=== PATIENT | female | born 1930 | race Caucasian/White ===

== ENCOUNTER 2016-12-04 11:47 | Observation (INO) ==
[2016-12-04] MEDS ORDERED: methylPREDNISolone 125 MG/2 ML VIAL IVP ONE (11:53)
[2016-12-04] MEDS ORDERED: Albuterol 2.5 MG/3 ML NEBULIZER IH ONE (11:53)
[2016-12-04] MEDS ORDERED: Levofloxacin 500 MG/100 ML 500 MG/100 ML BAG IVPB ONE (11:56)
[2016-12-04] MEDS ORDERED: 0.9 % Sodium Chloride 1,000 ML IVC ONE (11:56)
--- NOTE | 2016-12-04 12:01 | Emergency Department Note ---
Disposition Clinical Impression: COPD exacerbation Pneumonia Qualifiers: Pneumonia type: due to unspecified organism Laterality: right Lung location: upper lobe of lung Qualified Code(s): J18.1 - Lobar pneumonia, unspecified organism Disposition: Admitted As Inpatient Condition: Fair Referrals: NO,PCP [Primary Care Provider] - Forms: ED Satisfaction Letter Time of Disposition: 13:00 SOB HPI - General Chief Complaint: ED Shortness of Breath/Dyspnea Stated Complaint: breathing trouble Time Seen by Provider: 12/04/16 11:53 Source: patient, family Mode of arrival: EMS Limitations: no limitations, age Nursing Notes Reviewed: Yes Vital Signs Reviewed: Yes - History of Present Illness Family states patient has not been ill but woke up this morning with shortness of breath. She was actually seen by her primary physician on Monday. Told to stop the Lasix and lidocaine patch was given for chronic back pain. They are concerned about her low total weight. They also referred her to pain management. Family member who takes care of her indicates that the patient does have a history of bronchospasm and lung disease but had been prescribed a nebulizer a year ago and never uses it so she sent back. She also never uses her puffer area this morning however the family member gave her an albuterol nebulizer of another family members treatment about an hour before arrival. Patient denies any chest pain, palpitations, not aware for fever, no Reiger's, no chest pain no nausea no vomiting she does have a decreased appetite. Denies dysuria Pt Subjective Complaint: shortness of breath, cough Onset (ago): hour(s) Severity: severe Consistency/Duration: constant Improves with: bronchodilators Worsens with: lying flat, coughing Known history of: COPD Treatment prior to arrival: oxygen, bronchodilator Cough present: Yes Cough Description: Voluntary, Weak Cough Frequency: Intermittent Sputum production: No Sputum Amount: None - Related Data Home oxygen amount: none Home Medications Medication Instructions Recorded Confirmed Aspirin 81 mg PO DAILY 05/11/15 01/06/16 Gabapentin [Neurontin] 100 mg PO TID 05/11/15 01/06/16 Furosemide [Lasix] 10 mg PO DAILY 01/05/16 01/05/16 Omeprazole [PriLOSEC] 20 mg PO DAILY 01/05/16 01/05/16 hydroCHLOROthiazide 12.5 mg PO DAILY 01/11/16 01/11/16 [Hydrochlorothiazide] Azithromycin [Zithromax] 250 mg PO DAILY 01/14/16 01/14/16 Allergies Allergy/AdvReac Type Severity Reaction Status Date / Time cephalexin [From Keflex] Allergy Flushing Verified 01/05/16 21:08 moxifloxacin Allergy Flushing Verified 01/05/16 21:08 All systems ED: reviewed and negative except as stated. Cardiovascular: Denies: chest pain, palpitations, edema, syncope, paroxysmal nocturnal dyspnea Respiratory: Reports: dyspnea, wheezes. Denies: cough, hemoptysis, sputum production Gastrointestinal: Denies: nausea, vomiting Past Medical History - Past Medical History Medical history: Reports: COPD, hypertension, other Surgical history: Reports: no surgical history Psychiatric history: Reports: no psych history POUNDMASTER history: Reports: no POUNDMASTER history - Social History Smoking Status: Never smoker Smokeless Tobacco Status: No Alcohol use: Reports: none Drug use: Reports: none Physical Exam Constitutional: Patient is oriented to person, place, and time. Skin color is pink. Appears well hydrated, body habitus elderly, cachectic, frail . Non toxic appearing. Head: Normocephalic and atraumatic. External ear exam normal Nose: Nose normal. Mouth/Throat: Uvula is midline, oropharynx is clear and moist and mucous membranes are normal. Eyes: Conjunctivae nl, extraocular motions and lids are normal. Pupils are equal , round, and reactive to light. Neck: Normal range of motion and phonation normal. Neck supple. Cardiovascular: Rapid rate, regular rhythm, normal heart sounds. Pulmonary/Chest: Patient presents in Respiratory distress. Increased respiratory effort, intercostal muscle use, diminished breath sounds, end expiratory wheezing, no rhonchi or rales, prolonged expiratory phase Abdominal: Soft. Normal appearance and bowel sounds are normal. no tenderness, no masses, no guarding, no rebound Musculoskeletal: Good distal pulses. Soft compartments. Brisk cap refill. Extremities: Normal range of motion.Intact peripheral pulses. No Edema. Extremity skin color nl, no calf tenderness or palpable cords. Neurological: Patient is alert and oriented without evidence of obvious motor deficits Skin: Skin is warm, dry and intact. color is normal, cap refill is quick Psychiatric: Patient has normal mood and affect. Patient speech is normal and behavior is normal. Thought content normal. - General Limitations: no limitations General appearance: alert, in distress Course - Reevaluation(s) Reevaluation #1: Patient has maintained normal vitals and is improved slightly after breathing treatment. She has pneumonia and will require hospitalization. Family would like her admitted here. Plan for admit Time: 12:58 Vital Signs Temperature 100.7 F H 12/04/16 11:50 Pulse Rate 111 12/04/16 11:50 Respiratory Rate 28 12/04/16 11:50 Blood Pressure 172/93 12/04/16 11:50 O2 Sat by Pulse Oximetry 95 12/04/16 11:50 Temperature 100.7 F H 12/04/16 11:50 Pulse Rate 102 12/04/16 13:01 Respiratory Rate 20 12/04/16 13:01 Blood Pressure 142/76 12/04/16 13:01 O2 Sat by Pulse Oximetry 99 12/04/16 13:01 Oxygen Delivery Oxygen Delivery Nasal Cannula Shortness of Breath/Dyspnea - MDM Narrative Medical decision making narrative: pt likely has pneumonia w/ hx COPD and SOB w fever. 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 Also cannot use Levaquin which would initially be first-line therapy. For this reason I have chosen azithromycin for community-acquired pneumonia in patient with comorbidities and also ertapenem - Medical Records Medical records reviewed: Yes I reviewed the patient's medical records. - Lab Data Lab results reviewed: Yes I reviewed the patient's lab results. Result diagrams: 12/04/16 12:10 12/04/16 12:10 Lab Results 12/04/16 12/04/16 12/04/16 Range/Units 12:10 12:10 12:10 WBC 7.0 (4.3-11.1) K/mcL RBC 3.63 L (3.82-4.97) M/mcL Hgb 11.4 L (11.5-15.4) g/dL Hct 34.7 L (35.3-44.9) % MCV 95.6 (83.0-100.0) fL MCH 31.4 (28.0-33.3) pg MCHC 32.9 (31.6-35.5) g/dL RDW 14.5 (11.5-14.5) % Plt Count 256 (140-400) K/mcL MPV 10.6 (9.4-12.4) fL Immature Gran % 0.3 (0-4) % Seg Neutrophils % 72.0 % Lymphocytes % 13.6 % Monocytes % 8.3 % Eosinophils % 5.4 % Basophils % 0.4 % Neutrophils # 5.1 (1.6-8.9) K/mcL Lymphocytes # 1.0 (0.6-4.6) K/mcL Monocytes # 0.6 (0.0-1.3) K/mcL Eosinophils # 0.4 (0.0-0.6) K/mcL Basophils # 0.0 (0.0-0.2) K/mcL PT (9.4-12.1) Seconds INR APTT (26.0-36.0) Seconds VBG pH (7.32-7.42) pH Units VBG pCO2 (41-51) mmHg VBG pO2 (25-40) mmHg VBG HCO3 (21-27) mEq/L VBG Lactic Acid (0.5-2.2) mmol/L Sodium 143 (136-145) mEq/L Potassium 4.8 H (3.5-4.5) mEq/L Chloride 107 (98-109) mEq/L Carbon Dioxide 23 (19-29) mEq/L BUN 28 H (7-20) mg/dL Creatinine 1.96 H (0.57-1.11) mg/dL Est GFR ( Amer) 29 L (> 60) Est GFR (Non-Af Amer) 24 L (> 60) BUN/Creatinine Ratio 14 (6-26) Glucose 99 (70-99) mg/dL Calculated Osmolality 302 H (280-300) Calcium 10.0 (8.6-10.8) mg/dL Total Bilirubin 0.5 (0.2-1.2) mg/dL Direct Bilirubin 0.3 (0.0-0.5) mg/dL Indirect Bilirubin 0.2 (0.0-1.2) mg/dL AST 12 (5-34) Units/L ALT 6 (0-55) Units/L Alkaline Phosphatase 59 (38-126) Units/L Troponin I 0.04 H* (0-0.03) ng/mL B-Natriuretic Peptide (0-100) pg/mL Serum Total Protein 7.2 (6.0-8.3) g/dL Albumin 3.0 L (3.5-5.0) g/dL Globulin 4.2 H (2.4-3.5) g/dL Albumin/Globulin Ratio 0.7 L (1.1-2.2) Urine Color (Yellow) Urine Clarity (Clear) Urine pH (5.0-8.0) pH Units Ur Specific [place] (1.010-1.025) Urine Protein (Neg-Trace) mg/dL Urine Glucose (UA) (Normal) mg/dL Urine Ketones (Negative) mg/dL Urine Blood (Negative) Urine Nitrite (Negative) Urine Bilirubin (Negative) Urine Urobilinogen (Normal) mg/dL Ur Leukocyte Esterase (Negative) Urine Microscopic WBC (0-3) per hpf Ur Squamous Epith Cells (None-Few) per lpf Ur Culture Indicated? (NO) 12/04/16 12/04/16 12/04/16 Range/Units 12:10 12:10 12:10 WBC (4.3-11.1) K/mcL RBC (3.82-4.97) M/mcL Hgb (11.5-15.4) g/dL Hct (35.3-44.9) % MCV (83.0-100.0) fL MCH (28.0-33.3) pg MCHC (31.6-35.5) g/dL RDW (11.5-14.5) % Plt Count (140-400) K/mcL MPV (9.4-12.4) fL Immature Gran % (0-4) % Seg Neutrophils % % Lymphocytes % % Monocytes % % Eosinophils % % Basophils % % Neutrophils # (1.6-8.9) K/mcL Lymphocytes # (0.6-4.6) K/mcL Monocytes # (0.0-1.3) K/mcL Eosinophils # (0.0-0.6) K/mcL Basophils # (0.0-0.2) K/mcL PT 11.0 (9.4-12.1) Seconds INR 1.0 APTT 28.9 (26.0-36.0) Seconds VBG pH 7.34 (7.32-7.42) pH Units VBG pCO2 50.2 (41-51) mmHg VBG pO2 42.2 H (25-40) mmHg VBG HCO3 26.8 (21-27) mEq/L VBG Lactic Acid 1.4 (0.5-2.2) mmol/L Sodium (136-145) mEq/L Potassium (3.5-4.5) mEq/L Chloride (98-109) mEq/L Carbon Dioxide (19-29) mEq/L BUN (7-20) mg/dL Creatinine (0.57-1.11) mg/dL Est GFR ( Amer) (> 60) Est GFR (Non-Af Amer) (> 60) BUN/Creatinine Ratio (6-26) Glucose (70-99) mg/dL Calculated Osmolality (280-300) Calcium (8.6-10.8) mg/dL Total Bilirubin (0.2-1.2) mg/dL Direct Bilirubin (0.0-0.5) mg/dL Indirect Bilirubin (0.0-1.2) mg/dL AST (5-34) Units/L ALT (0-55) Units/L Alkaline Phosphatase (38-126) Units/L Troponin I (0-0.03) ng/mL B-Natriuretic Peptide 159 H (0-100) pg/mL Serum Total Protein (6.0-8.3) g/dL Albumin (3.5-5.0) g/dL Globulin (2.4-3.5) g/dL Albumin/Globulin Ratio (1.1-2.2) Urine Color (Yellow) Urine Clarity (Clear) Urine pH (5.0-8.0) pH Units Ur Specific [place] (1.010-1.025) Urine Protein (Neg-Trace) mg/dL Urine Glucose (UA) (Normal) mg/dL Urine Ketones (Negative) mg/dL Urine Blood (Negative) Urine Nitrite (Negative) Urine Bilirubin (Negative) Urine Urobilinogen (Normal) mg/dL Ur Leukocyte Esterase (Negative) Urine Microscopic WBC (0-3) per hpf Ur Squamous Epith Cells (None-Few) per lpf Ur Culture Indicated? (NO) 12/04/16 Range/Units 12:40 WBC (4.3-11.1) K/mcL RBC (3.82-4.97) M/mcL Hgb (11.5-15.4) g/dL Hct (35.3-44.9) % MCV (83.0-100.0) fL MCH (28.0-33.3) pg MCHC (31.6-35.5) g/dL RDW (11.5-14.5) % Plt Count (140-400) K/mcL MPV (9.4-12.4) fL Immature Gran % (0-4) % Seg Neutrophils % % Lymphocytes % % Monocytes % % Eosinophils % % Basophils % % Neutrophils # (1.6-8.9) K/mcL Lymphocytes # (0.6-4.6) K/mcL Monocytes # (0.0-1.3) K/mcL Eosinophils # (0.0-0.6) K/mcL Basophils # (0.0-0.2) K/mcL PT (9.4-12.1) Seconds INR APTT (26.0-36.0) Seconds VBG pH (7.32-7.42) pH Units VBG pCO2 (41-51) mmHg VBG pO2 (25-40) mmHg VBG HCO3 (21-27) mEq/L VBG Lactic Acid (0.5-2.2) mmol/L Sodium (136-145) mEq/L Potassium (3.5-4.5) mEq/L Chloride (98-109) mEq/L Carbon Dioxide (19-29) mEq/L BUN (7-20) mg/dL Creatinine (0.57-1.11) mg/dL Est GFR ( Amer) (> 60) Est GFR (Non-Af Amer) (> 60) BUN/Creatinine Ratio (6-26) Glucose (70-99) mg/dL Calculated Osmolality (280-300) Calcium (8.6-10.8) mg/dL Total Bilirubin (0.2-1.2) mg/dL Direct Bilirubin (0.0-0.5) mg/dL Indirect Bilirubin (0.0-1.2) mg/dL AST (5-34) Units/L ALT (0-55) Units/L Alkaline Phosphatase (38-126) Units/L Troponin I (0-0.03) ng/mL B-Natriuretic Peptide (0-100) pg/mL Serum Total Protein (6.0-8.3) g/dL Albumin (3.5-5.0) g/dL Globulin (2.4-3.5) g/dL Albumin/Globulin Ratio (1.1-2.2) Urine Color Yellow (Yellow) Urine Clarity Clear (Clear) Urine pH 6.0 (5.0-8.0) pH Units Ur Specific [place] 1.020 (1.010-1.025) Urine Protein 30 H (Neg-Trace) mg/dL Urine Glucose (UA) Normal (Normal) mg/dL Urine Ketones Negative (Negative) mg/dL Urine Blood Negative (Negative) Urine Nitrite Negative (Negative) Urine Bilirubin Negative (Negative) Urine Urobilinogen Normal (Normal) mg/dL Ur Leukocyte Esterase Negative (Negative) Urine Microscopic WBC 0-3 (0-3) per hpf Ur Squamous Epith Cells Few (None-Few) per lpf Ur Culture Indicated? NO (NO) - Radiology Data Radiology results reviewed: Yes I reviewed the patient's radiology results. Right upper lobar pneumonia - EKG Data EKG attestation: Yes I reviewed and interpreted this EKG. EKG shows normal: Reports: sinus rhythm Rate: Reports: tachycardia [place]/QRS: Reports: normal Voltage: Reports: c/w LVH Interpretation: Reports: nonspecific ST-T wave changes
[2016-12-04] MEDS ORDERED: Azithromycin 500 MG in D5% in Water 250 ML IVPB ONE (12:02)
[2016-12-04 12:22] LABS: Basophils % 0.4 %; Eosinophils # 0.4 K/mcL (0.0-0.6); Eosinophils % 5.4 %; Hematocrit 34.7 % (35.3-44.9); Hemoglobin 11.4 g/dL (11.5-15.4); Immature Granulocytes % 0.3 % (0-4); Lymphocytes % 13.6 %; Mean Corpuscular HGB Conc 32.9 g/dL (31.6-35.5); Mean Corpuscular Hemoglobin 31.4 pg (28.0-33.3); Mean Corpuscular Volume 95.6 fL (83.0-100.0); Mean Platelet Volume 10.6 fL (9.4-12.4); Monocytes # 0.6 K/mcL (0.0-1.3); Monocytes % 8.3 %; Neutrophils # 5.1 K/mcL (1.6-8.9); Platelet Count 256 K/mcL (140-400); Red Blood Count 3.63 M/mcL (3.82-4.97); Red Cell Distribution Width 14.5 % (11.5-14.5)
[2016-12-04 12:32] LABS: Activated Partial Thrombo Time 28.9 Seconds (26.0-36.0)
[2016-12-04 12:33] LABS: VBG PCO2 50.2 mmHg (41-51); VBG PH 7.34 pH Units (7.32-7.42)
[2016-12-04 12:34] LABS: VBG HCO3 26.8 mEq/L (21-27); VBG PO2 42.2 mmHg (25-40)
[2016-12-04 12:36] LABS: Albumin/Globulin Ratio 0.7 (1.1-2.2); Bilirubin,Total 0.5 mg/dL (0.2-1.2); Globulin 4.2 g/dL (2.4-3.5); Potassium 4.8 mEq/L (3.5-4.5); Total Protein 7.2 g/dL (6.0-8.3)
[2016-12-04 12:37] LABS: Bilirubin,Direct 0.3 mg/dL (0.0-0.5); Bilirubin,Indirect 0.2 mg/dL (0.0-1.2)
[2016-12-04 12:51] LABS: Bilirubin,Urine Negative (Negative); Blood,Urine Negative (Negative); Clarity,Urine Clear (Clear); Color,Urine Yellow (Yellow); Glucose,Urine (UA) Normal (Normal); Ketones,Urine Negative (Negative); Leukocyte Esterase,Urine Negative (Negative); Nitrite,Urine Negative (Negative); Protein,Urine 30 mg/dL (Neg-Trace); Urobilinogen,Urine Normal (Normal)
[2016-12-04 12:54] LABS: Squamous Epithelial Cell,Urine Few per lpf (None-Few); WBC,Urine 0-3 per hpf (0-3)
[2016-12-04] MEDS ORDERED: Mag Hydrox/Al Hydrox/Simeth 30 ML UDC PO PRN (14:31)
[2016-12-04] MEDS ORDERED: Gabapentin 300 MG CAPSULE PO SCH (15:00)
[2016-12-04] MEDS: Aspirin 81 MG TAB.CHEW PO SCH (15:51)
[2016-12-04] MEDS: Ipratropium/Albuterol Neb 3 ML IH SCH ×2 (17:02→22:36)
[2016-12-04] MEDS: methylPREDNISolone 125 MG/2 ML VIAL IVP SCH (17:02)
[2016-12-04] MEDS ORDERED: methylPREDNISolone 60 MG in 0.9 % Sodium Chloride 100 ML IVPB SCH (18:00)
[2016-12-04] MEDS: Gabapentin 100 MG CAPSULE PO SCH (22:36)
[2016-12-05] MEDS: methylPREDNISolone 125 MG/2 ML VIAL IVP SCH ×4 (00:37→18:27)
[2016-12-05] MEDS: Ipratropium/Albuterol Neb 3 ML IH SCH ×6 (02:40→21:13)
[2016-12-05 05:23] LABS: Basophils % 0.2 %; Hematocrit 30.5 % (35.3-44.9); Hemoglobin 9.8 g/dL (11.5-15.4); Immature Granulocytes % 0.2 % (0-4); Lymphocytes # 0.3 K/mcL (0.6-4.6); Lymphocytes % 5.7 %; Mean Corpuscular HGB Conc 32.1 g/dL (31.6-35.5); Mean Corpuscular Volume 96.5 fL (83.0-100.0); Mean Platelet Volume 10.9 fL (9.4-12.4); Monocytes % 0.6 %; Neutrophils # 4.7 K/mcL (1.6-8.9); Platelet Count 223 K/mcL (140-400); Red Blood Count 3.16 M/mcL (3.82-4.97); Red Cell Distribution Width 14.1 % (11.5-14.5); Segmented Neutrophils % 93.3 %
[2016-12-05 05:32] LABS: Albumin 2.7 g/dL (3.5-5.0); Albumin/Globulin Ratio 0.7 (1.1-2.2); Bilirubin,Total 0.2 mg/dL (0.2-1.2); Calcium 9.5 mg/dL (8.6-10.8); Globulin 3.9 g/dL (2.4-3.5); Potassium 5.5 mEq/L (3.5-4.5); Total Protein 6.6 g/dL (6.0-8.3)
[2016-12-05] MEDS: *HR* Enoxaparin 30 MG/0.3 ML SYRINGE SQ SCH (06:25)
[2016-12-05] MEDS ORDERED: hydroCHLOROthiazide 25 MG TABLET PO SCH (09:00)
[2016-12-05] MEDS: hydroCHLOROthiazide 25 MG TABLET PO SCH (09:09)
[2016-12-05] MEDS: Aspirin 81 MG TAB.CHEW PO SCH (09:09)
[2016-12-05] MEDS: Acetaminophen 325 MG TABLET PO PRN ×2 (09:09→21:12)
[2016-12-05] MEDS: Gabapentin 100 MG CAPSULE PO SCH ×3 (09:10→21:12)
[2016-12-05] MEDS: Azithromycin 500 MG in D5% in Water 250 ML IVPB SCH (14:58)
--- NOTE | 2016-12-05 18:45 | Internal Med History&Physical ---
Date of Encounter: 12/05/16 Time of Encounter: 18:43 Assessment and Plan (1) Pneumonia Current visit: Yes Status: Acute On IV Zithromax. Continue with pulmonary treatment. Qualifiers: Pneumonia type: due to unspecified organism Laterality: right Lung location: upper lobe of lung Qualified Code(s): J18.1 - Lobar pneumonia, unspecified organism Internal Medicine - H&P: HPI History of present illness: Ms. Espinoza is a 86 year old female admitted through the ED last night for pneumonia. On today's examination she states that she feels much better. She has less cough. She has no shortness of breath. She has been on IV antibiotics. Family states patient has not been ill but woke up this morning with shortness of breath. She was actually seen by her primary physician on Monday. Told to stop the Lasix and lidocaine patch was given for chronic back pain. They are concerned about her low total weight. They also referred her to pain management. Family member who takes care of her indicates that the patient does have a history of bronchospasm and lung disease but had been prescribed a nebulizer a year ago and never uses it so she sent back. She also never uses her puffer area this morning however the family member gave her an albuterol nebulizer of another family members treatment about an hour before arrival. Past Med Surg Social Fam HX - Past Medical History Medical history: COPD, hypertension, other Psychiatric history: no psych history - Past Surgical History Surgical History: no surgical history - Social History Smoking Status: Never smoker Smokeless Tobacco Status: No Alcohol use: none Drug use: none - Family History Mother Living Status: Hx Family Neuromuscular Disorders: Yes Father Living Status: Hx Family Endocrine Disorder: Yes Internal Medicine - H&P: Meds Aspirin 81 mg PO DAILY 05/11/15 [History] Gabapentin [Neurontin] 100 mg PO TID 05/11/15 [History] Furosemide [Lasix] 10 mg PO DAILY 01/05/16 [History] Omeprazole [PriLOSEC] 20 mg PO DAILY 01/05/16 [History] hydroCHLOROthiazide [Hydrochlorothiazide] 12.5 mg PO DAILY 01/11/16 [History] Azithromycin [Zithromax] 250 mg PO DAILY 01/14/16 [History] Allergies cephalexin [From Keflex] Allergy (Verified 01/05/16 21:08) Flushing moxifloxacin Allergy (Verified 01/05/16 21:08) Flushing All Systems PM: A 10-system review of systems was performed and is negative for pertinent findings except as documented above in the HPI. - Constitutional Constitutional: lethargy - Cardiovascular Cardiovascular ROS IM: no chest pain, no diaphoresis, no dyspnea, no lightheadedness, no palpitations, no syncope - Respiratory Respiratory: cough, dyspnea on exertion - Gastrointestinal Gastrointestinal: no abdominal pain, no diarrhea, no hematemesis, no hematochezia, no melena, no nausea, no vomiting - Musculoskeletal Musculoskeletal ROS IM: muscle weakness - Integumentary Integumentary IM: no rash, no unusual bruising - Neurological Neurological ROS: no confusion, no convulsions, no focal weakness, no numbness, no tingling, no tremor(s) - Constitutional Vitals: Temp Pulse Resp BP Pulse Ox 98.9 F 98 18 126/63 94 12/05/16 18:25 12/05/16 18:25 12/05/16 18:25 12/05/16 18:25 12/05/16 18:25 General appearance: Present: A&O X 3, pleasant, no acute distress - Respiratory Respiratory exam: Present: decreased breath sounds. Absent: rales, rhonchi, wheezes - Cardiovascular Cardiovascular exam: Present: RRR, +S1, +S2. Absent: diastolic murmur, gallop, rubs, systolic murmur - GI/Abdominal GI/Abdominal exam: Present: normal bowel sounds, soft, no peritoneal signs. Absent: distended, tenderness - Extremities Exam Extremities exam: Present: warm, radial pulses palpable and symetrical. Absent : calf tenderness, cyanotic, pedal edema Internal Med - H&P Results - Labs CBC & Chem 7: 12/05/16 04:50 12/05/16 04:50 Labs: Short CBC 12/05/16 Range/Units 04:50 WBC 5.1 (4.3-11.1) K/mcL Hgb 9.8 L D (11.5-15.4) g/dL Hct 30.5 L (35.3-44.9) % Plt Count 223 (140-400) K/mcL Neutrophils # 4.7 (1.6-8.9) K/mcL BMP 12/05/16 04:50 Sodium 140 Potassium 5.5 H Chloride 108 Carbon Dioxide 22 BUN 31 H Creatinine 1.94 H Glucose 184 H Calcium 9.5 Cardiac Enzymes 12/04/16 Range/Units 21:00 Troponin I 0.02 (0-0.03) ng/mL Liver Function 12/05/16 Range/Units 04:50 Total Bilirubin 0.2 (0.2-1.2) mg/dL AST 13 (5-34) Units/L ALT 6 (0-55) Units/L Alkaline Phosphatase 45 (38-126) Units/L Albumin 2.7 L (3.5-5.0) g/dL
[2016-12-06] MEDS: methylPREDNISolone 125 MG/2 ML VIAL IVP SCH ×5 (00:45→23:40)
[2016-12-06] MEDS: Ipratropium/Albuterol Neb 3 ML IH SCH ×7 (00:45→23:39)
[2016-12-06] MEDS: *HR* Enoxaparin 30 MG/0.3 ML SYRINGE SQ SCH (05:43)
[2016-12-06 05:55] LABS: Calcium 9.5 mg/dL (8.6-10.8); Potassium 5.3 mEq/L (3.5-4.5)
[2016-12-06] MEDS: hydroCHLOROthiazide 25 MG TABLET PO SCH (09:23)
[2016-12-06] MEDS: Aspirin 81 MG TAB.CHEW PO SCH (09:24)
[2016-12-06] MEDS: Gabapentin 100 MG CAPSULE PO SCH ×3 (09:25→19:43)
[2016-12-06] MEDS ORDERED: 0.9 % Sodium Chloride 1,000 ML IVC ONE (09:27)
--- NOTE | 2016-12-06 09:27 | Internal Med Progress Note ---
Date of Encounter: 12/06/16 Time of Encounter: 09:25 - Assessment and plan (1) Pneumonia Current Visit: Yes Status: Acute Assessment and plan: Repeat chest x-ray shows that the right upper lobe infiltrate has improved. On IV Zithromax. Continue with antibiotics. Likely discharge in the morning. Blood pressure is 106. Potassium is 5.3. Will give IV fluids judiciously today. Qualifiers: Pneumonia type: due to unspecified organism Laterality: right Lung location: upper lobe of lung Qualified Code(s): J18.1 - Lobar pneumonia, unspecified organism - Subjective Interval history: Feeling better. No shortness of breath. Cough is better. Requesting to stay until tomorrow. She still feels too weak to go home. - Constitutional Vitals: Temp Pulse Resp BP Pulse Ox 98.9 F 80 18 106/60 96 12/06/16 08:39 12/06/16 08:39 12/06/16 08:39 12/06/16 08:39 12/06/16 08:39 General appearance: Present: A&O X 3, pleasant, no acute distress - Respiratory Respiratory exam: Present: decreased breath sounds, CTAB. Absent: accessory muscle use, rales, rhonchi, wheezes - Cardiovascular Cardiovascular exam: Present: RRR, +S1, +S2. Absent: diastolic murmur, gallop, rubs, systolic murmur - GI/Abdominal GI/Abdominal exam: Present: normal bowel sounds, soft, no peritoneal signs. Absent: distended, tenderness - Extremities Exam Extremities exam: Present: warm, radial pulses palpable and symetrical. Absent : calf tenderness, cyanotic, pedal edema Internal Medicine: Result - Labs CBC & Chem 7: 12/05/16 04:50 12/06/16 05:15 Labs: BMP 12/06/16 05:15 Sodium 142 Potassium 5.3 H Chloride 108 Carbon Dioxide 24 BUN 41 H D Creatinine 2.15 H Glucose 167 H Calcium 9.5 - ABG Interpretation ABG results: PT/INR, D-dimer PT 11.0 Seconds (9.4-12.1) 12/04/16 12:10 - Impressions Impressions Chest X-Ray 12/06/16 07:00 IMPRESSION: Right upper lobe pneumonia has improved since the prior examination. D/ / 12/06/2016 08:29:07 Hollis Encarnacion MD / tristen Interpreting Provider: Hollis Encarnacion MD Consult Discharge Plan - Plan Referrals: NO,PCP [Primary Care Provider] -
[2016-12-06] MEDS: Azithromycin 500 MG in D5% in Water 250 ML IVPB SCH (12:24)
[2016-12-06] MEDS: MOM Conc 10 ML UD.LIQ PO PRN (19:43)
[2016-12-07] MEDS: Ipratropium/Albuterol Neb 3 ML IH SCH ×5 (05:11→20:04)
[2016-12-07] MEDS: methylPREDNISolone 125 MG/2 ML VIAL IVP SCH ×3 (05:11→18:02)
[2016-12-07] MEDS: *HR* Enoxaparin 30 MG/0.3 ML SYRINGE SQ SCH (05:12)
[2016-12-07] MEDS: MOM Conc 10 ML UD.LIQ PO PRN (09:37)
[2016-12-07] MEDS: Gabapentin 100 MG CAPSULE PO SCH ×3 (09:37→20:04)
[2016-12-07] MEDS: Aspirin 81 MG TAB.CHEW PO SCH (09:38)
[2016-12-07] MEDS: hydroCHLOROthiazide 25 MG TABLET PO SCH (09:38)
--- NOTE | 2016-12-07 11:00 | Internal Med Progress Note ---
Date of Encounter: 12/07/16 Time of Encounter: 10:58 - Assessment and plan (1) COPD exacerbation Current Visit: Yes Status: Acute Assessment and plan: She is much improved overall (2) Pneumonia Current Visit: Yes Status: Acute Assessment and plan: Pneumonia is improving on chest x-ray check in the Qualifiers: Pneumonia type: due to unspecified organism Laterality: right Lung location: upper lobe of lung Qualified Code(s): J18.1 - Lobar pneumonia, unspecified organism - Time Spent With Patient less than 15 minutes - Subjective Interval history: Patient states her breathing is better sats are 90% on room air. - Constitutional Vitals: Temp Pulse Resp BP Pulse Ox 98.1 F 123 18 118/59 95 12/07/16 07:52 12/07/16 07:52 12/07/16 07:52 12/07/16 07:52 12/07/16 07:52 General appearance: Present: A&O X 3, pleasant, no acute distress - Head Head exam: Present: atraumatic, normal inspection, normocephalic - Neck Neck exam general surgery: Present: supple, trachea midline. Absent: lymphadenopathy - Respiratory Respiratory exam: Present: decreased breath sounds, CTAB, prolonged expiratory phase. Absent: accessory muscle use, rales, rhonchi, wheezes Additional comments: Few right-sided rhonchi but diminished breath sounds overall - Cardiovascular Cardiovascular exam: Present: RRR, +S1, +S2. Absent: diastolic murmur, gallop, rubs, systolic murmur Internal Medicine: Result - Labs CBC & Chem 7: 12/05/16 04:50 12/06/16 05:15 Labs: No chronic renal failure noted - ABG Interpretation ABG results: PT/INR, D-dimer PT 11.0 Seconds (9.4-12.1) 12/04/16 12:10 Consult Discharge Plan - Plan Referrals: NO,PCP [Primary Care Provider] -
--- NOTE | 2016-12-07 12:29 | Electrocardiograph Report ---
[place] [id number] Test Date: 2016-12-04 Pat Name: Erin Espinoza Department: 2000 Room: 114 Gender: F Cook Specialty: : 1930 Requested By: Tiana España Order Number: [id number] Reading MD: Desmond Valladares MD Measurements Intervals [place] Rate: 109 P: 70 DC: 141 QRS: 46 QRSD: 78 T: 81 QT: 322 QTc: 386 Interpretive Statements SINUS TACHYCARDIA VOLTAGE CRITERIA FOR LVH BASELINE ARTIFACT Electronically Signed On 12-07-2016 12:27:10 EDT by Desmond Valladares MD
[2016-12-07] MEDS: Azithromycin 500 MG in D5% in Water 250 ML IVPB SCH (12:33)
[2016-12-08] MEDS: methylPREDNISolone 125 MG/2 ML VIAL IVP SCH ×4 (00:21→17:19)
[2016-12-08] MEDS: Ipratropium/Albuterol Neb 3 ML IH SCH ×6 (00:21→20:42)
[2016-12-08 06:03] LABS: Calcium 9.1 mg/dL (8.6-10.8); Potassium 5.5 mEq/L (3.5-4.5)
[2016-12-08] MEDS: *HR* Enoxaparin 30 MG/0.3 ML SYRINGE SQ SCH (06:34)
[2016-12-08] MEDS: Gabapentin 100 MG CAPSULE PO SCH ×3 (08:25→20:42)
[2016-12-08] MEDS: hydroCHLOROthiazide 25 MG TABLET PO SCH (08:25)
[2016-12-08] MEDS: Aspirin 81 MG TAB.CHEW PO SCH (08:26)
[2016-12-08] MEDS: Azithromycin 500 MG in D5% in Water 250 ML IVPB SCH (11:40)
--- NOTE | 2016-12-08 12:02 | Internal Med Progress Note ---
Date of Encounter: 12/08/16 Time of Encounter: 12:00 - Assessment and plan (1) COPD exacerbation Current Visit: Yes Status: Acute Assessment and plan: cxr pneumonia resolved. watching chem K in particular. (2) Pneumonia Current Visit: Yes Status: Acute Assessment and plan: resolved. Qualifiers: Pneumonia type: due to unspecified organism Laterality: right Lung location: upper lobe of lung Qualified Code(s): J18.1 - Lobar pneumonia, unspecified organism - Time Spent With Patient less than 15 minutes - Subjective Interval history: Patient states her breathing is better sats are 90% on room air.no complaints. - Constitutional Vitals: Temp Pulse Resp BP Pulse Ox 98.3 F 108 16 121/71 91 12/08/16 07:08 12/08/16 07:08 12/08/16 07:08 12/08/16 07:08 12/08/16 09:00 General appearance: Present: A&O X 3, pleasant, no acute distress - Head Head exam: Present: atraumatic, normal inspection, normocephalic - Neck Neck exam general surgery: Present: supple, trachea midline. Absent: lymphadenopathy - Respiratory Respiratory exam: Present: CTAB. Absent: accessory muscle use, rales, rhonchi, wheezes - Cardiovascular Cardiovascular exam: Present: RRR, +S1, +S2. Absent: diastolic murmur, gallop, rubs, systolic murmur Internal Medicine: Result - Labs CBC & Chem 7: 12/05/16 04:50 12/08/16 05:30 Labs: BMP 12/08/16 05:30 Sodium 139 Potassium 5.5 H Chloride 104 Carbon Dioxide 28 BUN 58 H D Creatinine 2.12 H Glucose 141 H Calcium 9.1 bun cretinine up. will give modest fluids and recheck chem in am. - ABG Interpretation ABG results: PT/INR, D-dimer PT 11.0 Seconds (9.4-12.1) 12/04/16 12:10 - Impressions Impressions Chest X-Ray 12/08/16 10:58 IMPRESSION: 1. Stable chest demonstrating right middle lobe linear atelectasis or scar. 2. Severe emphysema. 3. Moderate-sized hiatal hernia. D/ / Mitchel Lin MD / Mitchel Lin MD Interpreting Provider: Mitchel Lin MD Consult Discharge Plan - Plan Referrals: NO,PCP [Primary Care Provider] -
[2016-12-08 12:53] LABS: Calcium 8.7 mg/dL (8.6-10.8)
[2016-12-08] MEDS: 0.9 % Sodium Chloride 1,000 ML IVC SCH (12:55)
[2016-12-08] MEDS: Acetaminophen 325 MG TABLET PO PRN (20:42)
[2016-12-09] MEDS: methylPREDNISolone 125 MG/2 ML VIAL IVP SCH ×2 (01:00→05:39)
[2016-12-09] MEDS: Ipratropium/Albuterol Neb 3 ML IH SCH ×3 (01:00→09:13)
[2016-12-09] MEDS: 0.9 % Sodium Chloride 1,000 ML IVC SCH (01:50)
[2016-12-09] MEDS: *HR* Enoxaparin 30 MG/0.3 ML SYRINGE SQ SCH (05:38)
[2016-12-09 05:40] LABS: Calcium 8.5 mg/dL (8.6-10.8); Potassium 4.7 mEq/L (3.5-4.5)
[2016-12-09] MEDS: hydroCHLOROthiazide 25 MG TABLET PO SCH (09:13)
[2016-12-09] MEDS: Gabapentin 100 MG CAPSULE PO SCH (09:13)
[2016-12-09] MEDS: Aspirin 81 MG TAB.CHEW PO SCH (09:13)
[2016-12-09 11:42] VITALS: BP 112/65
--- NOTE | 2016-12-09 14:15 | Discharge Summary ---
Date of Encounter: 12/09/16 Time of Encounter: 14:13 - Discharge Diagnosis (1) COPD exacerbation Priority: Primary Status: Acute (2) Pneumonia Priority: Primary Status: Acute Qualifiers: Pneumonia type: due to unspecified organism Laterality: right Lung location: upper lobe of lung Qualified Code(s): J18.1 - Lobar pneumonia, unspecified organism - Discharge Medications Home Medications: Aspirin 81 mg PO DAILY 05/11/15 [History] Gabapentin [Neurontin] 100 mg PO TID 05/11/15 [History] Furosemide [Lasix] 10 mg PO DAILY 01/05/16 [History] Omeprazole [PriLOSEC] 20 mg PO DAILY 01/05/16 [History] hydroCHLOROthiazide [Hydrochlorothiazide] 12.5 mg PO DAILY 01/11/16 [History] Azithromycin [Zithromax] 250 mg PO DAILY 01/14/16 [History] Allergies/Adverse Reactions: Allergies cephalexin [From Keflex] Allergy (Verified 01/05/16 21:08) [place] moxifloxacin Allergy (Verified 01/05/16 21:08) Flushing Date of admission: 12/04/16 14:03 Primary care physician: PCP NO Consults: 12/07/16 11:[address] buyer [Consult to Nutrition] [CONS] Routine Comment: wt loss Consulting Provider: NUTRITION Reason for Dietary Consult: PO Supplementation Discharging clinician: Edouard Cote Anticipated date of discharge: 12/09/16 - Patient Status Disposition: Home, Self-Care Functional capacity at discharge: uses cane/walker Overall status at discharge: patient is progressing back to baseline - Discharge Instructions Follow Up With: edouard goodman [Other] - 12/23/16 11:15 am (patient sees caitlyn) haider peterson [Other] - 12/14/16 2:50 pm NO,PCP [Primary Care Provider] - - Diet and Activity Activity: ambulate only with your walker Diet: advance to your usual diet Interval History: Patient came in with shortness of breath is noted to have what I think work by basilar infiltrates. These resolved. And the patient's breathing is baseline she did have an elevated potassium and watch the renal function. I recommended that when she sees her primary care physician to recheck Chem-7. Hospital course: Ms. Espinoza is a 86 year old female Patient diureses IV antibiotics and fluid for the rising BUN. Her intake is rather poor but she is eating better lately - Time Spent with Patient Total time spent providing and/or coordinating discharge services: - Constitutional Vitals: Temp Pulse Resp BP Pulse Ox 97.8 F 112 16 112/65 91 12/09/16 11:40 12/09/16 11:40 12/09/16 11:40 12/09/16 11:40 12/09/16 11:40 General appearance: Present: A&O X 3, pleasant, no acute distress - Head Head exam: Present: atraumatic, normal inspection, normocephalic - Neck Neck exam general surgery: Present: supple, trachea midline. Absent: lymphadenopathy - Respiratory Respiratory exam: Present: decreased breath sounds, CTAB. Absent: accessory muscle use, rales, rhonchi, wheezes Additional comments: Very minimal breath sounds bilaterally
[2016-12-09 15:21] LABS: Calcium 8.4 mg/dL (8.6-10.8); Potassium 4.3 mEq/L (3.5-4.5)
== END 2016-12-09 16:00 | disposition home or self-care (01) ==
LOC: EMEROOGRE 11:47 → INPGRE 11:47
PROVIDERS: ADMIT Internal Medicine; ATTEND Internal Medicine

== ENCOUNTER 2017-02-23 15:23 | Inpatient (IN) ==
--- NOTE | 2017-02-23 16:18 | Emergency Department Note ---
Disposition Clinical Impression: Back pain Disposition: Admitted As Inpatient Condition: Fair Forms: ED Satisfaction Letter Time of Disposition: 16:18 Back Pain HPI - General Stated Complaint: Hip Pain Time Seen by Provider: 02/23/17 16:05 Source: patient, family, EMS Limitations: no limitations Nursing Notes Reviewed: Yes Vital Signs Reviewed: Yes - History of Present Illness HPI Narrative: For the last couple of weeks since hospital discharge from here [facility] for a COPD exacerbation miss Espinoza has been in a lot of pain. She does have known osteoarthritis of the left hip but has not seen an orthopedist regarding possibility of replacement. She also has compression fractures of the been known for the last few months. She denies any recent fall and was images to couple of days ago. As above the pain is been much more of an issue for the last 2 weeks and her daughter has lived with her since hospital discharge try to help with ADLs but is unable to accomplish this. She does have a home health nurse come in 2 days a week. Before this most recent hospitalization she was independent at home. Appetite is good but she has a lot of trouble getting up to use the restroom secondary to the pain. Her home health nurse visited today and recommended that she, here to the emergency department for evaluation. She has been trying the opioid pain medication from previous ER visit without much help to her symptoms. Pt Subjective Complaint: back pain Onset (ago): week(s) - Related Data Home Medications Medication Instructions Recorded Confirmed Aspirin 81 mg PO DAILY 05/11/15 02/23/17 Gabapentin [Neurontin] 100 mg PO TID 05/11/15 02/23/17 Omeprazole [PriLOSEC] 20 mg PO HS 01/05/16 02/23/17 hydroCHLOROthiazide 12.5 mg PO Q48H 01/11/16 02/23/17 [Hydrochlorothiazide] Previous Rx's Medication Instructions Recorded HYDROcodone/Acet 5/325 mg [[place] 1 tab PO Q6H PRN #12 tab 02/21/17 5-325 mg] Allergies Allergy/AdvReac Type Severity Reaction Status Date / Time cephalexin [From Keflex] Allergy Flushing Verified 01/05/16 21:08 moxifloxacin Allergy [place] Verified 01/05/16 21:08 Constitutional: Denies: fever, chills Cardiovascular: Denies: chest pain Respiratory: Denies: dyspnea Gastrointestinal: Denies: abdominal pain, nausea Genitourinary: Denies: urgency, dysuria Musculoskeletal: Reports: back pain Neurological: Denies: headache, numbness, paresthesias Endocrine: Reports: fatigue Hematological/Lymphatic: Denies: easy bleeding, easy bruising Past Medical History - Past Medical History Medical history: Reports: COPD, hypertension, other Surgical history: Reports: no surgical history Psychiatric history: Reports: no psych history [employer] history: Reports: no [employer] HELPER history - Social History Smoking Status: Never smoker Smokeless Tobacco Status: No Alcohol use: Reports: none Drug use: Reports: none Physical Exam - General Limitations: no limitations General appearance: alert, in no apparent distress - Head Head exam: normocephalic - Eye Eye exam: Present: normal appearance - ENT ENT exam: mucous membranes moist - Respiratory Respiratory exam: Absent: respiratory distress - Cardiovascular Cardiovascular exam: Present: regular rate, normal rhythm, normal heart sounds - Abdominal Exam Abdominal exam: Present: soft, Non-Tender - Extremities Exam Extremities exam: Present: normal inspection. Absent: pedal edema - Expanded Lower Extremity Exam Hip/Pelvis exam: Present: normal inspection, external rotation, internal rotation, pelvis stable, other (Leg length equal. No abnormal rotation of the lower extremities.). Absent: shortening Upper leg exam: Present: normal inspection, full ROM. Absent: tenderness - Back Exam Back exam: Present: normal inspection, tenderness, vertebral tenderness ( Positive pain to palpation along the lumbar vertebrae) - Neurological Exam Neurological exam: Present: alert - Psychiatric Psychiatric exam: Present: flat affect - Skin Skin exam: Present: warm, dry Course Vital Signs Temperature 99.8 F H 02/23/17 15:29 Pulse Rate 96 02/23/17 15:29 Respiratory Rate 16 02/23/17 15:29 Blood Pressure 172/81 02/23/17 15:29 O2 Sat by Pulse Oximetry 16 02/23/17 15:29 Temperature 97.8 F 02/23/17 19:31 Pulse Rate 102 02/23/17 19:31 Respiratory Rate 16 02/23/17 19:31 Blood Pressure 119/72 02/23/17 19:31 O2 Sat by Pulse Oximetry 90 02/23/17 19:31 Back Pain/Injury - MDM Narrative Medical decision making narrative: Low back pain secondary to compression fractures. She was given [place] as an outpatient but it has not helped much. Pain is beginning to decrease activities of daily living as she is for the most part immobile secondary to the pain. I did not want to go off on any opioid pain medication unsupervised. Creatinine is 1.98 therefore NSAIDs might be not the best idea in this elderly female. I spoke with the covering hospitalist and presented the case. He accepted admission here at [facility]. We will have physical therapy see her and attempt to titrate pain measures. Patient and family are in agreement with this plan. - Medical Records Medical records reviewed: Yes I reviewed the patient's medical records. - Lab Data Lab results reviewed: Yes I reviewed the patient's lab results. - Radiology Data Radiology results reviewed: Yes I reviewed the patient's radiology results.
[2017-02-23] MEDS ORDERED: Ondansetron 4 MG/2 ML VIAL IVP PRN (16:50)
[2017-02-23] MEDS ORDERED: Naloxone 0.4 MG/ML INJ IVP PRN (16:50)
[2017-02-23] MEDS: *HR* OxyCODONE Immed Rel 5 MG TABLET PO PRN ×2 (18:16→23:05)
[2017-02-23] MEDS: Gabapentin 300 MG CAPSULE PO SCH (23:04)
[2017-02-24 05:08] LABS: Hematocrit 30.3 % (35.3-44.9); Hemoglobin 9.7 g/dL (11.5-15.4); Mean Corpuscular Hemoglobin 29.8 pg (28.0-33.3); Mean Corpuscular Volume 92.9 fL (83.0-100.0); Mean Platelet Volume 10.5 fL (9.4-12.4); Platelet Count 343 K/mcL (140-400); Red Blood Count 3.26 M/mcL (3.82-4.97); Red Cell Distribution Width 13.2 % (11.5-14.5)
[2017-02-24 05:23] LABS: INR 1.1; Prothrombin Time 11.8 Seconds (9.4-12.1)
[2017-02-24 05:29] LABS: Albumin 2.6 g/dL (3.5-5.0); Albumin/Globulin Ratio 0.7 (1.1-2.2); Bilirubin,Total 0.3 mg/dL (0.2-1.2); Calcium 9.8 mg/dL (8.6-10.8); Potassium 4.7 mEq/L (3.5-4.5); Total Protein 6.6 g/dL (6.0-8.3)
[2017-02-24] MEDS: *HR* OxyCODONE Immed Rel 5 MG TABLET PO PRN ×3 (06:20→21:25)
[2017-02-24] MEDS: *HR* Enoxaparin 30 MG/0.3 ML SYRINGE SQ SCH (06:21)
[2017-02-24] MEDS: Acetaminophen 325 MG TABLET PO PRN (08:17)
[2017-02-24] MEDS: Aspirin 81 MG TAB.CHEW PO SCH (08:18)
[2017-02-24] MEDS ORDERED: Gabapentin 100 MG CAPSULE PO SCH (09:00)
--- NOTE | 2017-02-24 11:28 | Internal Med History&Physical ---
Date of Encounter: 02/24/17 Time of Encounter: 11:26 Assessment and Plan (1) Lumbar compression fracture Current visit: No Status: Acute New compression fractures along with some old. And uncontrolled pain Qualifiers: Encounter type: subsequent encounter Lumbar vertebra fracture level: L5 Fracture type: closed Fracture healing: with routine healing Qualified Code( s): S32.050D - Wedge compression fracture of fifth lumbar vertebra, subsequent encounter for fracture with routine healing (2) Back pain Current visit: Yes Status: Acute Uncontrolled back pain. Any movement elicits a pain response Qualifiers: Back pain location: low back pain Qualified Code(s): M54.40 - Lumbago with sciatica, unspecified side Internal Medicine - H&P: HPI Chief complaint: Uncontrolled back pain due to compression fractures] Admitted From: Emergency Dept History of present illness: Ms. Espinoza is a 86 year old female Patient states there were no falls or sitting down and suddenly but she is having severe uncontrolled pain. She was then admitted for pain control. She is going to be seen by PT OT and I will do the best I can control her pain at K pad etc. She had a series of lumbar films around February 20. And it did show new compression fractures and advancement of others Past Med Surg Social Fam HX - Past Medical History Medical history: COPD, hypertension, other Psychiatric history: no psych history - Past Surgical History Surgical History: no surgical history - Social History Smoking Status: Never smoker Smokeless Tobacco Status: No Alcohol use: none Drug use: none - Family History Mother Living Status: Hx Family Neuromuscular Disorders: Yes Father Living Status: Hx Family Endocrine Disorder: Yes Internal Medicine - H&P: Meds Aspirin 81 mg PO DAILY 05/11/15 [History] Gabapentin [Neurontin] 100 mg PO TID 05/11/15 [History] Omeprazole [PriLOSEC] 20 mg PO HS 01/05/16 [History] hydroCHLOROthiazide [Hydrochlorothiazide] 12.5 mg PO Q48H 01/11/16 [History] HYDROcodone/Acet 5/325 mg [[place] 5-325 mg] 1 tab PO Q6H PRN #12 tab 02/21/17 [Rx ] 3 Allergy/AdvReac Type Severity Reaction Status Date / Time cephalexin [From Keflex] Allergy Flushing Verified 01/05/16 21:08 moxifloxacin Allergy Flushing Verified 01/05/16 21:08 All Systems PM: A 10-system review of systems was performed and is negative for pertinent findings except as documented above in the HPI. - Constitutional Vitals: Temp Pulse Resp BP Pulse Ox 98.1 F 98 18 156/79 92 02/24/17 07:35 02/24/17 07:35 02/24/17 07:35 02/24/17 07:35 02/24/17 07:35 - Head Head exam: Present: atraumatic, normal inspection, normocephalic - Neck Neck exam general surgery: Present: supple, trachea midline. Absent: lymphadenopathy - Respiratory Respiratory exam: Present: CTAB. Absent: accessory muscle use, rales, rhonchi, wheezes - Cardiovascular Cardiovascular exam: Present: RRR, +S1, +S2. Absent: diastolic murmur, gallop, rubs, systolic murmur - Other Additional findings: Pain is in the lower lumbar sacral region. Internal Med - H&P Results - Labs CBC & Chem 7: 02/24/17 04:45 02/24/17 04:45 Labs: Short CBC 02/24/17 Range/Units 04:45 WBC 11.0 (4.3-11.1) K/mcL Hgb 9.7 L (11.5-15.4) g/dL Hct 30.3 L (35.3-44.9) % Plt Count 343 (140-400) K/mcL BMP 02/24/17 04:45 Sodium 140 Potassium 4.7 H Chloride 107 Carbon Dioxide 25 BUN 33 H Creatinine 1.63 H Glucose 93 Calcium 9.8 Liver Function 02/24/17 Range/Units 04:45 Total Bilirubin 0.3 (0.2-1.2) mg/dL AST 13 (5-34) Units/L ALT 8 (0-55) Units/L Alkaline Phosphatase 56 (38-126) Units/L Albumin 2.6 L (3.5-5.0) g/dL Lab is stable she does have some chronic changes in renal function
[2017-02-24] MEDS: Gabapentin 100 MG CAPSULE PO SCH ×2 (14:52→21:25)
[2017-02-24] MEDS: MOM Conc 10 ML UD.LIQ PO PRN (18:50)
[2017-02-25] MEDS: *HR* OxyCODONE Immed Rel 5 MG TABLET PO PRN ×2 (06:28→16:39)
[2017-02-25] MEDS: *HR* Enoxaparin 30 MG/0.3 ML SYRINGE SQ SCH (06:28)
[2017-02-25] MEDS: Acetaminophen 325 MG TABLET PO PRN ×2 (09:22→21:18)
[2017-02-25] MEDS: Gabapentin 100 MG CAPSULE PO SCH ×3 (09:22→21:18)
[2017-02-25] MEDS: Aspirin 81 MG TAB.CHEW PO SCH (09:22)
--- NOTE | 2017-02-25 15:56 | Internal Med Progress Note ---
Date of Encounter: 02/25/17 Time of Encounter: 15:15 - Assessment and plan (1) Lumbar compression fracture Current Visit: No Status: Acute Assessment and plan: - Continue to work with therapists. - Pain control. Qualifiers: Encounter type: subsequent encounter Lumbar vertebra fracture level: L5 Fracture type: closed Fracture healing: with routine healing Qualified Code( s): S32.050D - Wedge compression fracture of fifth lumbar vertebra, subsequent encounter for fracture with routine healing - Time Spent With Patient less than 15 minutes - Subjective Interval history: - Pain is about the same as yesterday. - Actively working with therapists. - Constitutional Vitals: Temp Pulse Resp BP Pulse Ox 98.2 F 82 15 139/70 95 02/25/17 12:00 02/25/17 12:00 02/25/17 12:00 02/25/17 12:00 02/25/17 12:00 Exam: Gen: A&Ox3, NAD. HEENT: NCAT. Neck: No palpable lymphadenopathy or thyromegaly. CV: RRR, S1S2. No murmur. Capillary refill < 2 seconds. Pulm: CTAB. Abd: (+)BS. NDNT. Neuro: Global weakness, otherwise non-focal. Skin: No rash. Ext: No pitting edema. Internal Medicine: Result - Labs CBC & Chem 7: 02/24/17 04:45 02/24/17 04:45 - ABG Interpretation ABG results: PT/INR, D-dimer PT 11.8 Seconds (9.4-12.1) 02/24/17 04:45 Consult Discharge Plan - Plan Referrals: Caridad Sen MD [Primary Care Provider] -
[2017-02-26] MEDS: *HR* Enoxaparin 30 MG/0.3 ML SYRINGE SQ SCH (06:04)
[2017-02-26] MEDS: *HR* OxyCODONE Immed Rel 5 MG TABLET PO PRN (06:13)
[2017-02-26] MEDS: Aspirin 81 MG TAB.CHEW PO SCH (08:37)
[2017-02-26] MEDS: Gabapentin 100 MG CAPSULE PO SCH ×3 (08:37→21:21)
[2017-02-26] MEDS: MOM Conc 10 ML UD.LIQ PO PRN (10:11)
--- NOTE | 2017-02-26 13:02 | Internal Med Progress Note ---
Date of Encounter: 02/26/17 Time of Encounter: 12:50 - Assessment and plan (1) Lumbar compression fracture Current Visit: No Status: Acute Assessment and plan: - Continue to work with therapists. - Continue current pain regimen. Qualifiers: Encounter type: subsequent encounter Lumbar vertebra fracture level: L5 Fracture type: closed Fracture healing: with routine healing Qualified Code( s): S32.050D - Wedge compression fracture of fifth lumbar vertebra, subsequent encounter for fracture with routine healing (2) Respiratory crackles at right lung base Current Visit: Yes Status: Acute Assessment and plan: - Will obtain a CXR. - Incentive spirometry. - Time Spent With Patient less than 15 minutes - Subjective Interval history: - Pain is responding to heat pad and current pain regimen. - Was requiring increased nasal canula this morning. - Constitutional Vitals: Temp Pulse Resp BP Pulse Ox 97.6 F 77 15 121/74 97 02/26/17 11:00 02/26/17 11:00 02/26/17 11:00 02/26/17 11:00 02/26/17 11:00 Exam: Gen: A&Ox3, NAD. HEENT: NCAT. Neck: No palpable lymphadenopathy or thyromegaly. CV: RRR, S1S2. No murmur. Capillary refill < 2 seconds. Pulm: Adequate air entry with right basilar crackles appreciated. No rhonchi or wheezing. Abd: (+)BS. NDNT. Neuro: Global weakness, otherwise non-focal. Skin: No rash. Ext: No pitting edema. Internal Medicine: Result - Labs CBC & Chem 7: 02/24/17 04:45 02/24/17 04:45 - ABG Interpretation ABG results: PT/INR, D-dimer PT 11.8 Seconds (9.4-12.1) 02/24/17 04:45 Consult Discharge Plan - Plan Referrals: Caridad Sen MD [Primary Care Provider] -
[2017-02-26] MEDS: Doxycycline 100 MG CAPSULE PO SCH (21:21)
[2017-02-27] MEDS: *HR* Enoxaparin 30 MG/0.3 ML SYRINGE SQ SCH (05:41)
[2017-02-27] MEDS: *HR* OxyCODONE Immed Rel 5 MG TABLET PO PRN ×3 (05:45→16:31)
[2017-02-27] MEDS: MOM Conc 10 ML UD.LIQ PO PRN (09:07)
[2017-02-27] MEDS: Gabapentin 100 MG CAPSULE PO SCH ×3 (09:07→17:52)
[2017-02-27] MEDS: Aspirin 81 MG TAB.CHEW PO SCH (09:07)
[2017-02-27] MEDS: Doxycycline 100 MG CAPSULE PO SCH ×2 (09:08→17:48)
--- NOTE | 2017-02-27 14:58 | Internal Med Progress Note ---
Date of Encounter: 02/27/17 Time of Encounter: 14:56 - Assessment and plan (1) Lumbar compression fracture Current Visit: No Status: Acute Assessment and plan: Pain due to lumbar compression fractures Qualifiers: Encounter type: subsequent encounter Lumbar vertebra fracture level: L5 Fracture type: closed Fracture healing: with routine healing Qualified Code( s): S32.050D - Wedge compression fracture of fifth lumbar vertebra, subsequent encounter for fracture with routine healing (2) Back pain Current Visit: Yes Status: Acute Assessment and plan: See above pain due to lumbar compression fractures. Severe osteoporosis Qualifiers: Back pain location: low back pain Qualified Code(s): M54.40 - Lumbago with sciatica, unspecified side - Time Spent With Patient less than 15 minutes - Subjective Interval history: Patient is still in pain if she is moved. But she was up in the chair and she even did walk a little this weekend. She is now currently back in bed resting. She states that heat helps. She had discussed with her the possibility and probability that she will need to go to an ECF for a while and she is thinking about which one. - Constitutional Vitals: Temp Pulse Resp BP Pulse Ox 98.3 F 78 18 149/97 91 02/27/17 11:19 02/27/17 11:19 02/27/17 11:19 02/27/17 11:19 02/27/17 11:19 - Head Head exam: Present: atraumatic, normal inspection, normocephalic - Neck Neck exam general surgery: Present: supple, trachea midline. Absent: lymphadenopathy - Cardiovascular Cardiovascular exam: Present: RRR, +S1, +S2. Absent: diastolic murmur, gallop, rubs, systolic murmur Internal Medicine: Result - Labs CBC & Chem 7: 02/24/17 04:45 02/24/17 04:45 Labs: Lab looks good she has some chronic changes - ABG Interpretation ABG results: PT/INR, D-dimer PT 11.8 Seconds (9.4-12.1) 02/24/17 04:45 Consult Discharge Plan - Plan Referrals: Caridad Sen MD [Primary Care Provider] -
[2017-02-28] MEDS: *HR* Enoxaparin 30 MG/0.3 ML SYRINGE SQ SCH (05:44)
[2017-02-28] MEDS: Gabapentin 100 MG CAPSULE PO SCH ×3 (10:10→20:14)
[2017-02-28] MEDS: Doxycycline 100 MG CAPSULE PO SCH ×2 (10:10→20:14)
[2017-02-28] MEDS: Aspirin 81 MG TAB.CHEW PO SCH (10:10)
[2017-02-28] MEDS: *HR* OxyCODONE Immed Rel 5 MG TABLET PO PRN (13:11)
--- NOTE | 2017-02-28 14:02 | Internal Med Progress Note ---
Date of Encounter: 02/28/17 Time of Encounter: 14:00 - Assessment and plan (1) Lumbar compression fracture Current Visit: No Status: Acute Assessment and plan: Pain reasonably controlled at rest patient is moving a little better and now performing some therapy Qualifiers: Encounter type: subsequent encounter Lumbar vertebra fracture level: L5 Fracture type: closed Fracture healing: with routine healing Qualified Code( s): S32.050D - Wedge compression fracture of fifth lumbar vertebra, subsequent encounter for fracture with routine healing (2) Back pain Current Visit: Yes Status: Acute Assessment and plan: See above pression fracture Qualifiers: Back pain location: low back pain Qualified Code(s): M54.40 - Lumbago with sciatica, unspecified side - Time Spent With Patient less than 15 minutes - Subjective Interval history: Follow-up patient did very well today she walked down to the gym started parallel bars and is resting currently. Much improvement stilL has pain but she is trying.. - Constitutional Vitals: Temp Pulse Resp BP Pulse Ox 98.3 F 93 14 151/84 97 02/28/17 11:08 02/28/17 11:08 02/28/17 11:08 02/28/17 11:08 02/28/17 11:08 - Head Head exam: Present: atraumatic, normal inspection, normocephalic - Neck Neck exam general surgery: Present: supple, trachea midline. Absent: lymphadenopathy - Respiratory Respiratory exam: Present: CTAB. Absent: accessory muscle use, rales, rhonchi, wheezes - Cardiovascular Cardiovascular exam: Present: RRR, +S1, +S2. Absent: diastolic murmur, gallop, rubs, systolic murmur - GI/Abdominal GI/Abdominal exam: Present: normal bowel sounds, soft, no peritoneal signs. Absent: distended, tenderness Internal Medicine: Result - Labs CBC & Chem 7: 02/24/17 04:45 02/24/17 04:45 Labs: Watch renal function - ABG Interpretation ABG results: PT/INR, D-dimer PT 11.8 Seconds (9.4-12.1) 02/24/17 04:45 Consult Discharge Plan - Plan Referrals: Caridad Sen MD [Primary Care Provider] -
[2017-02-28] MEDS: Acetaminophen 325 MG TABLET PO PRN (20:13)
[2017-02-28] MEDS: MOM Conc 10 ML UD.LIQ PO PRN (20:14)
[2017-03-01] MEDS: *HR* Enoxaparin 30 MG/0.3 ML SYRINGE SQ SCH (05:44)
[2017-03-01] MEDS: *HR* OxyCODONE Immed Rel 5 MG TABLET PO PRN (09:00)
[2017-03-01] MEDS: Aspirin 81 MG TAB.CHEW PO SCH (09:01)
[2017-03-01] MEDS: Doxycycline 100 MG CAPSULE PO SCH ×2 (09:01→20:47)
[2017-03-01] MEDS: Gabapentin 100 MG CAPSULE PO SCH ×3 (09:01→20:46)
--- NOTE | 2017-03-01 15:03 | Internal Med Progress Note ---
Date of Encounter: 03/01/17 Time of Encounter: 14:54 - Assessment and plan (1) Back pain Current Visit: Yes Status: Acute Assessment and plan: Patient is struggling to ambulate but she is doing the best she can. She also had decreased sats over labral rotator cuff Qualifiers: Back pain location: low back pain Qualified Code(s): M54.40 - Lumbago with sciatica, unspecified side - Time Spent With Patient less than 15 minutes - Subjective Interval history: Follow-up patient did very well today she walked down to the gym started parallel bars and is resting currently. Much improvement stilL has pain but she is trying.. - Constitutional Vitals: Temp Pulse Resp BP Pulse Ox 98.3 F 101 16 138/79 96 03/01/17 11:55 03/01/17 11:55 03/01/17 11:55 03/01/17 11:55 03/01/17 11:55 - Head Head exam: Present: atraumatic, normocephalic - Neck Neck exam general surgery: Present: supple, trachea midline. Absent: lymphadenopathy - Respiratory Respiratory exam: Present: CTAB. Absent: accessory muscle use, rales, rhonchi, wheezes - Cardiovascular Cardiovascular exam: Present: RRR, +S1, +S2. Absent: diastolic murmur, gallop, rubs, systolic murmur Internal Medicine: Result - Labs CBC & Chem 7: 02/24/17 04:45 02/24/17 04:45 Labs: There are chronic changes noted - ABG Interpretation ABG results: PT/INR, D-dimer PT 11.8 Seconds (9.4-12.1) 02/24/17 04:45 Consult Discharge Plan - Plan Referrals: Caridad Sen MD [Primary Care Provider] -
[2017-03-01] MEDS: Acetaminophen 325 MG TABLET PO PRN (20:46)
[2017-03-02] MEDS: *HR* Enoxaparin 30 MG/0.3 ML SYRINGE SQ SCH (06:56)
[2017-03-02] MEDS: Acetaminophen 325 MG TABLET PO PRN (06:56)
[2017-03-02] MEDS: Doxycycline 100 MG CAPSULE PO SCH ×2 (08:53→21:45)
[2017-03-02] MEDS: Gabapentin 100 MG CAPSULE PO SCH ×3 (08:53→21:45)
[2017-03-02] MEDS: Aspirin 81 MG TAB.CHEW PO SCH (08:53)
--- NOTE | 2017-03-02 20:58 | Physician Discharge Referral ---
- Diagnosis (1) Dehydration Priority: Secondary Status: Acute (2) COPD (chronic obstructive pulmonary disease) Priority: Primary Status: Chronic - Respiratory Orders Oxygen / L per min Smoking Cessation: Smoking cessation has been advised. For more information, call the [place] Tobacco Quit Line at 4-739-GLRA-NOW. - Diet/Nutrition Diet/Nutrition Orders: Regular - Activity Activity Orders: Walker Activity: List: as tolerated with support - Services Needed Following services are medically necessary services: Nursing (2 litere oxygn N/C ), Home Health Aide, Physical Therapy, Occupational Therapy - Transfer Medications Home Medications: Aspirin 81 mg PO DAILY 05/11/15 [History] Gabapentin [Neurontin] 100 mg PO TID 05/11/15 [History] Omeprazole [PriLOSEC] 20 mg PO HS 01/05/16 [History] hydroCHLOROthiazide [Hydrochlorothiazide] 12.5 mg PO Q48H 01/11/16 [History] HYDROcodone/Acet 5/325 mg [[place] 5-325 mg] 1 tab PO Q6H PRN #12 tab 02/21/17 [Rx ] Allergies/Adverse Reactions: 3 Allergy/AdvReac Type Severity Reaction Status Date / Time cephalexin [From Keflex] Allergy Flushing Verified 01/05/16 21:08 moxifloxacin Allergy [place] Verified 01/05/16 21:08 Certification: Further, I certify that my clinical findings support that this patient is homebound (i.e. absences from home require considerable and taxing effort and are for medical reasons or taoist services or infrequently or short duration when for other reasons) because: Homebound Reason: Patient requires assistance of a person or device to safely leave home, Leaving home requires considerable and taxing effort due to condition Attestation: My signature below is to certify that this patient is under my care and that I, or nurse practitioner, or a physician's special ed assistant working with me, has a face-to -face encounter with this patient.
--- NOTE | 2017-03-02 21:02 | Discharge Summary ---
Date of Encounter: 03/02/17 Time of Encounter: 21:00 - Discharge Diagnosis (1) Dehydration Priority: Secondary Status: Acute Comments: she was treated with IV fluids mildly to which she responded well she is eating well no and able to tolerate PO fluids (2) COPD (chronic obstructive pulmonary disease) Priority: Primary Status: Acute Comments: she was noted to be SOB She would become hypoxic with mildly exertion . 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 Qualified Code(s): J41.0 - Simple chronic bronchitis - Discharge Medications Home Medications: Aspirin 81 mg PO DAILY 05/11/15 [History] Gabapentin [Neurontin] 100 mg PO TID 05/11/15 [History] Omeprazole [PriLOSEC] 20 mg PO HS 01/05/16 [History] hydroCHLOROthiazide [Hydrochlorothiazide] 12.5 mg PO Q48H 01/11/16 [History] HYDROcodone/Acet 5/325 mg [Keller 5-325 mg] 1 tab PO Q6H PRN #12 tab 02/21/17 [Rx ] Acetaminophen [Tylenol] 650 mg PO Q6HR PRN tablet 03/02/17 [Rx] Doxycycline 100 mg PO BID capsule 03/02/17 [Rx] Lidocaine Patch [Lidoderm 5% patch] 1 each TP DAILY adh..patch 03/02/17 [Rx] Allergies/Adverse Reactions: 3 Allergy/AdvReac Type Severity Reaction Status Date / Time cephalexin [From Keflex] Allergy Flushing Verified 01/05/16 21:08 moxifloxacin Allergy Flushing Verified 01/05/16 21:08 Date of admission: 02/23/17 17:27 Primary care physician: Caridad Sen Consults: 02/24/17 10:48 Consult to Occupational Therapy [CONS] Routine Comment: Evaluate, develop and implement POC Reason for Consult: pain compression fx's - Patient Status Disposition: Home Health Service Condition: Fair Overall status at discharge: patient is back to baseline - Discharge Instructions Follow Up With: Caridad Sen MD [Primary Care Provider] - Forms: ED Satisfaction Letter - Diet and Activity Activity: ambulate only with your walker Diet: advance to your usual diet Hospital course: Ms. Espinoza is a 86 year old female who was admitted for increase in weakens and SOB . she was treated conservatively with Oral Antibiotic and oxygen . she has responded well and is back to her normal self - Time Spent with Patient Total time spent providing and/or coordinating discharge services: - Constitutional Vitals: Temp Pulse Resp BP Pulse Ox 98.7 F 98 18 147/79 97 03/02/17 19:43 03/02/17 19:43 03/02/17 19:43 03/02/17 19:43 03/02/17 19:43 General appearance: Present: A&O X 2, pleasant. Absent: severe distress (no aute distress ) Exam: no acute distress - Eye Eye exam: Present: EOMI, PERRL - Neck Neck exam general surgery: Present: supple. Absent: tenderness, nuchal rigidity - Respiratory Respiratory exam: Present: decreased breath sounds, CTAB. Absent: respiratory distress, rhonchi, wheezes - Cardiovascular Cardiovascular exam: Present: RRR, +S1, +S2 Additional comments: distant heart sounds - GI/Abdominal Additional comments: soft non tenderness bs ++ - Extremities Exam Extremities exam: Absent: pedal edema, tenderness
[2017-03-03] MEDS: Acetaminophen 325 MG TABLET PO PRN ×2 (01:07→09:08)
[2017-03-03] MEDS: *HR* Enoxaparin 30 MG/0.3 ML SYRINGE SQ SCH (06:03)
[2017-03-03] MEDS: Gabapentin 100 MG CAPSULE PO SCH ×2 (09:08→14:12)
[2017-03-03] MEDS: Aspirin 81 MG TAB.CHEW PO SCH (09:09)
[2017-03-03] MEDS: Doxycycline 100 MG CAPSULE PO SCH (09:09)
[2017-03-03] MEDS ORDERED: FLUARIX QUAD 2017-18 36MOS UP/PF 0.5 ML SYRINGE IM ONE (12:26)
[2017-03-03 16:49] VITALS: BP 145/65
== END 2017-03-03 19:03 | disposition home health service (06) | DRG 552 ==
LOC: EMEROOGRE 15:23 → INPGRE 15:23
PROVIDERS: ADMIT Internal Medicine; ATTEND Internal Medicine